=== PATIENT | male | born 1935 | race African-American/Black ===

== ENCOUNTER 2021-07-02 08:11 | Inpatient (IN) | payer BC, OTHER ==
[2021-07-02 08:31] VITALS: BMI 27.8
[2021-07-02] MEDS ORDERED: ACETAMINOPHEN 1000 MG/100 ML BAG IVPB ONE (08:39)
[2021-07-02] MEDS ORDERED: SODIUM CHLORIDE 0.9% 500 ML INFUS.BAG IV ONE (08:50)
[2021-07-02] MEDS ORDERED: DEXAMETHASONE SOD PHOSPHATE 4 MG/1 ML VIAL IVPUSH ONE (08:51)
[2021-07-02] MEDS ORDERED: ACETAMINOPHEN INJECTION 100 ML IVPB ONE (08:58)
[2021-07-02] MEDS ORDERED: DEXAMETHASONE SOD PHOSPHATE 4 MG/1 ML VIAL ONE (09:17)
[2021-07-02 10:35] LABS: BASO % 0.4 % (0-2.0); HEMATOCRIT 33.9 % (35.4-49); HEMOGLOBIN 11.1 GM/dL (11.7-16.9); INR 1.37 (0.83-1.09); LYMPH % 12.1 % (8-40); MCH 27.7 pg (25.7-33.7); MCHC 32.8 g/dl (32.0-35.9); MEAN CELL VOLUME 84.2 fl (80-96); MEAN PLT VOLUME 9.4 fl (7.5-11.1); MONO % 11.1 % (3.8-10.2); NEUT % 76.4 % (42.8-82.8); PLATELET COUNT 187 10^3/uL (134-434); PROTHROMBIN TIME (PATIENT) 15.8 SEC (9.7-13.0); RBC 4.03 M/mm3 (4.00-5.60); RDW 14.2 % (11.9-15.9); WHITE BLOOD COUNT 10.3 K/mm3 (4.0-10.0)
[2021-07-02 10:37] LABS: ACTIVATED PTT 33.2 SECONDS (25.2-36.5)
[2021-07-02 11:09] LABS: BLOOD UREA NITROGEN 13.4 mg/dL (7-18); CALCIUM 8.7 mg/dL (8.5-10.1)
[2021-07-02 11:10] LABS: ALBUMIN 2.9 g/dl (3.4-5.0)
[2021-07-02 11:12] LABS: CREATININE 1.4 mg/dL (0.55-1.3)
[2021-07-02 11:13] LABS: BILIRUBIN,TOTAL 0.8 mg/dL (0.2-1)
[2021-07-02 11:14] LABS: TOT PROT 8.3 g/dl (6.4-8.2)
[2021-07-02] MEDS ORDERED: ASPIRIN 81 MG CHEWABLE TABLETS PO ONE (11:23)
[2021-07-02] MEDS ORDERED: ASPIRIN COATED 81 MG TABLET.EC ONE (12:00)
[2021-07-02] MEDS ORDERED: ACETAMINOPHEN 325 MG TABLET (FP) PO PRN (12:11)
[2021-07-02] MEDS ORDERED: ALBUTEROL SO4 HFA INHALER IH PRN (12:11)
[2021-07-02] MEDS: DEXAMETHASONE SOD PHOSPHATE 10 MG/1 ML VIAL IVPUSH SCH (12:45)
[2021-07-02 13:49] LABS: MAGNESIUM 1.7 mg/dL (1.8-2.4)
[2021-07-02] MEDS ORDERED: DEXAMETHASONE SOD PHOSPHATE 10 MG/1 ML VIAL ONE (13:53)
[2021-07-02] MEDS: BUDESONIDE/FORMETEROL FUMARATE 160/4.5 mcg INHALER IH SCH ×2 (14:00→23:45)
[2021-07-02] MEDS ORDERED: MAGNESIUM SULF 50% (8.12 MEQ/2 ML-1 GM VIAL) IVPB ONE (14:55)
[2021-07-02] MEDS ORDERED: MAGNESIUM SULFATE IN WATER 2 GM/50 ML IVPB IVPB ONE ×2 (15:54→15:55)
[2021-07-03 08:25] LABS: BASO % 0.7 % (0-2.0); EOS % 0.3 % (0-4.5); HEMATOCRIT 36.3 % (35.4-49); HEMOGLOBIN 11.3 GM/dL (11.7-16.9); LYMPH % 5.2 % (8-40); MCH 26.6 pg (25.7-33.7); MCHC 31.2 g/dl (32.0-35.9); MEAN CELL VOLUME 85.3 fl (80-96); MEAN PLT VOLUME 9.8 fl (7.5-11.1); MONO % 4.1 % (3.8-10.2); NEUT % 89.7 % (42.8-82.8); PLATELET COUNT 210 10^3/uL (134-434); RBC 4.25 M/mm3 (4.00-5.60); RDW 14.4 % (11.9-15.9); WHITE BLOOD COUNT 12.8 K/mm3 (4.0-10.0)
[2021-07-03] MEDS ORDERED: REMDESIVIR 200 MG in SODIUM CHLORIDE 250 ML IVPB ONE ×2 (08:30→16:14)
[2021-07-03 08:51] LABS: CALCIUM 8.4 mg/dL (8.5-10.1); MAGNESIUM 2.9 mg/dL (1.8-2.4)
[2021-07-03 08:53] LABS: ALBUMIN 2.6 g/dl (3.4-5.0); BLOOD UREA NITROGEN 20.7 mg/dL (7-18)
[2021-07-03 08:55] LABS: CREATININE 1.3 mg/dL (0.55-1.3)
[2021-07-03 08:57] LABS: BILIRUBIN,TOTAL 0.6 mg/dL (0.2-1)
[2021-07-03] MEDS ORDERED: POTASSIUM CHLORIDE TABS 20 MEQ TABLET.ER (FP) PO ONE (09:15)
[2021-07-03] MEDS: TAMSULOSIN HCL 0.4 MG CAP PO SCH (09:34)
[2021-07-03] MEDS: ASPIRIN COATED 81 MG TABLET.EC PO SCH (09:34)
[2021-07-03] MEDS: ENALAPRIL MALEATE 10 MG TABLET PO SCH (09:34)
[2021-07-03] MEDS: BUDESONIDE/FORMETEROL FUMARATE 160/4.5 mcg INHALER IH SCH ×2 (09:35→21:58)
[2021-07-03] MEDS: NYSTATIN POWDER 100,000 UNITS/GM - 15 GM TOPICAL POWDER TP SCH (09:35)
[2021-07-03] MEDS: DEXAMETHASONE SOD PHOSPHATE 10 MG/1 ML VIAL IVPUSH SCH (09:35)
[2021-07-03] MEDS: KCL 10 MEQ IVPB 10 MEQ/100 ML INFUS.BAG IVPB SCH ×2 (09:37→09:59)
[2021-07-03] MEDS ORDERED: METOPROLOL TARTRATE 25 MG TABLET (FP) PO SCH (10:00)
[2021-07-03] MEDS ORDERED: metoPROLOL SUCCINATE 25 MG TAB.SR.24H (FP) PO SCH (10:00)
[2021-07-03] MEDS: ENOXAPARIN NA (PORCINE) 40 MG/0.4 ML DISP.SYRIN SQ SCH (13:21)
[2021-07-03] MEDS: amLODIPine BESYLATE 10 MG TABLET (FP) PO SCH (18:21)
[2021-07-04 07:33] LABS: BASO % 0.1 % (0-2.0); HEMATOCRIT 33.7 % (35.4-49); LYMPH % 5.7 % (8-40); MCH 27.5 pg (25.7-33.7); MCHC 32.8 g/dl (32.0-35.9); MEAN CELL VOLUME 83.9 fl (80-96); MEAN PLT VOLUME 9.2 fl (7.5-11.1); MONO % 7.6 % (3.8-10.2); NEUT % 86.6 % (42.8-82.8); PLATELET COUNT 232 10^3/uL (134-434); RBC 4.01 M/mm3 (4.00-5.60); WHITE BLOOD COUNT 15.2 K/mm3 (4.0-10.0)
[2021-07-04 08:08] LABS: CALCIUM 8.7 mg/dL (8.5-10.1)
[2021-07-04 08:10] LABS: ALBUMIN 2.4 g/dl (3.4-5.0); BLOOD UREA NITROGEN 20.2 mg/dL (7-18)
[2021-07-04 08:13] LABS: BILIRUBIN,TOTAL 0.8 mg/dL (0.2-1); CREATININE 1.1 mg/dL (0.55-1.3); TOT PROT 7.7 g/dl (6.4-8.2)
[2021-07-04] MEDS: ENOXAPARIN NA (PORCINE) 40 MG/0.4 ML DISP.SYRIN SQ SCH (11:09)
[2021-07-04] MEDS: DEXAMETHASONE SOD PHOSPHATE 10 MG/1 ML VIAL IVPUSH SCH (11:09)
[2021-07-04] MEDS: ENALAPRIL MALEATE 10 MG TABLET PO SCH (11:09)
[2021-07-04] MEDS: amLODIPine BESYLATE 10 MG TABLET (FP) PO SCH (11:10)
[2021-07-04] MEDS: TAMSULOSIN HCL 0.4 MG CAP PO SCH (11:10)
[2021-07-04] MEDS: BUDESONIDE/FORMETEROL FUMARATE 160/4.5 mcg INHALER IH SCH ×2 (11:10→21:27)
[2021-07-04] MEDS: NYSTATIN POWDER 100,000 UNITS/GM - 15 GM TOPICAL POWDER TP SCH (11:10)
[2021-07-04] MEDS: ASPIRIN COATED 81 MG TABLET.EC PO SCH (11:10)
[2021-07-04] MEDS: FUROSEMIDE 40 MG TABLET (FP) PO SCH (11:10)
[2021-07-04] MEDS ORDERED: REMDESIVIR 100 MG in SODIUM CHLORIDE 250 ML IVPB SCH (16:14)
[2021-07-05 08:47] LABS: BASO % 0.3 % (0-2.0); HEMOGLOBIN 10.9 GM/dL (11.7-16.9); LYMPH % 8.7 % (8-40); MCH 26.7 pg (25.7-33.7); MCHC 31.3 g/dl (32.0-35.9); MEAN CELL VOLUME 85.2 fl (80-96); MEAN PLT VOLUME 10.2 fl (7.5-11.1); MONO % 8.5 % (3.8-10.2); NEUT % 82.5 % (42.8-82.8); PLATELET COUNT 292 10^3/uL (134-434); RBC 4.11 M/mm3 (4.00-5.60); RDW 14.7 % (11.9-15.9); WHITE BLOOD COUNT 14.5 K/mm3 (4.0-10.0)
[2021-07-05] MEDS: ENOXAPARIN NA (PORCINE) 40 MG/0.4 ML DISP.SYRIN SQ SCH (09:02)
[2021-07-05] MEDS: FUROSEMIDE 40 MG TABLET (FP) PO SCH (09:03)
[2021-07-05] MEDS: ENALAPRIL MALEATE 10 MG TABLET PO SCH (09:03)
[2021-07-05] MEDS: amLODIPine BESYLATE 10 MG TABLET (FP) PO SCH (09:03)
[2021-07-05] MEDS: TAMSULOSIN HCL 0.4 MG CAP PO SCH (09:03)
[2021-07-05] MEDS: ASPIRIN COATED 81 MG TABLET.EC PO SCH (09:03)
[2021-07-05] MEDS: DEXAMETHASONE SOD PHOSPHATE 10 MG/1 ML VIAL IVPUSH SCH ×2 (09:06→09:20)
[2021-07-05 09:18] LABS: ALBUMIN 2.5 g/dl (3.4-5.0); BLOOD UREA NITROGEN 22.1 mg/dL (7-18); CALCIUM 8.6 mg/dL (8.5-10.1)
[2021-07-05 09:20] LABS: CREATININE 1.1 mg/dL (0.55-1.3)
[2021-07-05] MEDS: BUDESONIDE/FORMETEROL FUMARATE 160/4.5 mcg INHALER IH SCH ×2 (09:21→22:16)
[2021-07-05] MEDS: NYSTATIN POWDER 100,000 UNITS/GM - 15 GM TOPICAL POWDER TP SCH (09:21)
[2021-07-05 09:22] LABS: BILIRUBIN,TOTAL 0.5 mg/dL (0.2-1); TOT PROT 7.9 g/dl (6.4-8.2)
[2021-07-06 07:24] LABS: HEMATOCRIT 35.7 % (35.4-49); HEMOGLOBIN 11.3 GM/dL (11.7-16.9); MCH 26.9 pg (25.7-33.7); MCHC 31.7 g/dl (32.0-35.9); MEAN CELL VOLUME 84.9 fl (80-96); MEAN PLT VOLUME 9.4 fl (7.5-11.1); PLATELET COUNT 310 10^3/uL (134-434); RDW 14.3 % (11.9-15.9); WHITE BLOOD COUNT 12.9 K/mm3 (4.0-10.0)
[2021-07-06 07:30] LABS: CALCIUM 8.5 mg/dL (8.5-10.1)
[2021-07-06 07:31] LABS: ALBUMIN 2.4 g/dl (3.4-5.0); BLOOD UREA NITROGEN 24.6 mg/dL (7-18)
[2021-07-06 07:34] LABS: CREATININE 1.1 mg/dL (0.55-1.3)
[2021-07-06 07:36] LABS: BILIRUBIN,TOTAL 0.6 mg/dL (0.2-1)
[2021-07-06 09:49] LABS: ANISOCYTOSIS 0; HELMET CELLS 0; HOWELL-JOLLY BODIES 0; MACROCYTOSIS 0; OVALOCYTE 0; PLATELET ESTIMATE NORMAL; ROULEAU 0; SICKELED CELLS 0; TARGET CELLS 0; TEAR DROP CELLS 0; TOXIC GRANULATION 0
[2021-07-06] MEDS: DEXAMETHASONE SOD PHOSPHATE 10 MG/1 ML VIAL IVPUSH SCH (10:26)
[2021-07-06] MEDS: ASPIRIN COATED 81 MG TABLET.EC PO SCH (10:26)
[2021-07-06] MEDS: TAMSULOSIN HCL 0.4 MG CAP PO SCH (10:26)
[2021-07-06] MEDS: ENOXAPARIN NA (PORCINE) 40 MG/0.4 ML DISP.SYRIN SQ SCH (10:26)
[2021-07-06] MEDS: amLODIPine BESYLATE 10 MG TABLET (FP) PO SCH (10:26)
[2021-07-06] MEDS: FUROSEMIDE 40 MG TABLET (FP) PO SCH (10:26)
[2021-07-06] MEDS: ENALAPRIL MALEATE 10 MG TABLET PO SCH (10:27)
[2021-07-06] MEDS: BUDESONIDE/FORMETEROL FUMARATE 160/4.5 mcg INHALER IH SCH ×2 (10:27→21:41)
[2021-07-06] MEDS: NYSTATIN POWDER 100,000 UNITS/GM - 15 GM TOPICAL POWDER TP SCH (10:27)
[2021-07-07 07:48] LABS: BASO % 0.1 % (0-2.0); EOS % 0.5 % (0-4.5); HEMOGLOBIN 11.3 GM/dL (11.7-16.9); LYMPH % 10.5 % (8-40); MCH 27.2 pg (25.7-33.7); MCHC 32.3 g/dl (32.0-35.9); MEAN CELL VOLUME 84.2 fl (80-96); MEAN PLT VOLUME 9.1 fl (7.5-11.1); MONO % 13.3 % (3.8-10.2); NEUT % 75.6 % (42.8-82.8); PLATELET COUNT 320 10^3/uL (134-434); RBC 4.15 M/mm3 (4.00-5.60); RDW 14.4 % (11.9-15.9); WHITE BLOOD COUNT 12.6 K/mm3 (4.0-10.0)
[2021-07-07 08:30] LABS: ALBUMIN 2.3 g/dl (3.4-5.0)
[2021-07-07 08:31] LABS: BLOOD UREA NITROGEN 26.6 mg/dL (7-18); CREATININE 1.1 mg/dL (0.55-1.3)
[2021-07-07 08:32] LABS: BILIRUBIN,TOTAL 0.6 mg/dL (0.2-1)
[2021-07-07 08:33] LABS: TOT PROT 7.7 g/dl (6.4-8.2)
[2021-07-07] MEDS: DEXAMETHASONE SOD PHOSPHATE 10 MG/1 ML VIAL IVPUSH SCH (09:00)
[2021-07-07] MEDS: ENALAPRIL MALEATE 10 MG TABLET PO SCH (09:00)
[2021-07-07] MEDS: amLODIPine BESYLATE 10 MG TABLET (FP) PO SCH (09:02)
[2021-07-07] MEDS: ASPIRIN COATED 81 MG TABLET.EC PO SCH (09:02)
[2021-07-07] MEDS: FUROSEMIDE 40 MG TABLET (FP) PO SCH (09:04)
[2021-07-07] MEDS: ENOXAPARIN NA (PORCINE) 40 MG/0.4 ML DISP.SYRIN SQ SCH (09:04)
[2021-07-07] MEDS: TAMSULOSIN HCL 0.4 MG CAP PO SCH (09:04)
[2021-07-07] MEDS: BUDESONIDE/FORMETEROL FUMARATE 160/4.5 mcg INHALER IH SCH ×2 (09:05→22:22)
[2021-07-07] MEDS: NYSTATIN POWDER 100,000 UNITS/GM - 15 GM TOPICAL POWDER TP SCH (11:00)
[2021-07-08 08:04] LABS: HEMATOCRIT 36.8 % (35.4-49); HEMOGLOBIN 11.8 GM/dL (11.7-16.9); MCH 27.3 pg (25.7-33.7); MEAN CELL VOLUME 85.4 fl (80-96); MEAN PLT VOLUME 9.4 fl (7.5-11.1); PLATELET COUNT 370 10^3/uL (134-434); RBC 4.31 M/mm3 (4.00-5.60); RDW 14.7 % (11.9-15.9)
[2021-07-08 08:32] LABS: BLOOD UREA NITROGEN 30.8 mg/dL (7-18); CALCIUM 8.5 mg/dL (8.5-10.1)
[2021-07-08 08:33] LABS: ALBUMIN 2.4 g/dl (3.4-5.0)
[2021-07-08 08:36] LABS: CREATININE 1.2 mg/dL (0.55-1.3)
[2021-07-08 08:37] LABS: TOT PROT 7.7 g/dl (6.4-8.2)
[2021-07-08 08:38] LABS: BILIRUBIN,TOTAL 0.6 mg/dL (0.2-1)
[2021-07-08 08:52] LABS: ANISOCYTOSIS 1+; MACROCYTOSIS 0; PLATELET ESTIMATE NORMAL
[2021-07-08] MEDS: ENOXAPARIN NA (PORCINE) 40 MG/0.4 ML DISP.SYRIN SQ SCH (10:33)
[2021-07-08] MEDS: DEXAMETHASONE SOD PHOSPHATE 10 MG/1 ML VIAL IVPUSH SCH (10:33)
[2021-07-08] MEDS: TAMSULOSIN HCL 0.4 MG CAP PO SCH (10:35)
[2021-07-08] MEDS: FUROSEMIDE 40 MG TABLET (FP) PO SCH (10:35)
[2021-07-08] MEDS: ASPIRIN COATED 81 MG TABLET.EC PO SCH (10:35)
[2021-07-08] MEDS: NYSTATIN POWDER 100,000 UNITS/GM - 15 GM TOPICAL POWDER TP SCH (10:35)
[2021-07-08] MEDS: amLODIPine BESYLATE 10 MG TABLET (FP) PO SCH (10:35)
[2021-07-08] MEDS: ENALAPRIL MALEATE 10 MG TABLET PO SCH (10:35)
[2021-07-08] MEDS: BUDESONIDE/FORMETEROL FUMARATE 160/4.5 mcg INHALER IH SCH ×2 (10:36→21:42)
[2021-07-09] MEDS: TAMSULOSIN HCL 0.4 MG CAP PO SCH (09:58)
[2021-07-09] MEDS: ENALAPRIL MALEATE 10 MG TABLET PO SCH (09:58)
[2021-07-09] MEDS: amLODIPine BESYLATE 10 MG TABLET (FP) PO SCH (09:58)
[2021-07-09] MEDS: FUROSEMIDE 40 MG TABLET (FP) PO SCH (09:59)
[2021-07-09] MEDS: ENOXAPARIN NA (PORCINE) 40 MG/0.4 ML DISP.SYRIN SQ SCH (09:59)
[2021-07-09] MEDS: ASPIRIN COATED 81 MG TABLET.EC PO SCH (09:59)
[2021-07-09] MEDS: BUDESONIDE/FORMETEROL FUMARATE 160/4.5 mcg INHALER IH SCH (10:05)
[2021-07-09] MEDS: NYSTATIN POWDER 100,000 UNITS/GM - 15 GM TOPICAL POWDER TP SCH (10:11)
[2021-07-09 10:27] VITALS: BP 131/61; PULSE 91; TEMP 98.8
== END 2021-07-09 10:30 | DRG 177 ==
LOC: JER 08:11 → JERBED 09:26 → J4W 19:35
PROVIDERS: ADMIT Internal Medicine
PROC: XW033E5 Introduction of Remdesivir Anti-infective into Peripheral Vein, Percutaneous Approach, New Technology Group 5 (ICD-10-PCS; principal; 2021-07-03)
DX: U07.1 COVID-19 (principal); J12.82 Pneumonia due to coronavirus disease 2019; J96.01 Acute respiratory failure with hypoxia; I24.8 Other forms of acute ischemic heart disease; I10 Essential (primary) hypertension; R00.0 Tachycardia, unspecified; I45.10 Unspecified right bundle-branch block; N40.0 Benign prostatic hyperplasia without lower urinary tract symptoms; R94.31 Abnormal electrocardiogram [ECG] [EKG]; E66.9 Obesity, unspecified; Z68.29 Body mass index [BMI] 29.0-29.9, adult; Z85.038 Personal history of other malignant neoplasm of large intestine
CPT/HCPCS: 36415; 71045-TC-FY; 80053; 80061; 82550; 82553; 82728; 82962; 83036; 83605; 83615; 83735; 84484; 85025; 85379; 85610; 85730; 86140; 86850; 86900; 86901; 87040; 93005; 93010; 94761; 97116-GP; 97162-GP; 99285-25; C9399; C9803; J0131; J1100; U0003; U0005